=== PATIENT | female | born 1945 | race Two or more races ===

== ENCOUNTER 2022-02-05 09:39 | Outpatient (CLI) | payer MEDICARE, MEDICAID ==
[2022-02-05 10:51] LABS: ALBUMIN 4.2 g/dL (3.4-5.0); BILIRUBIN,TOTAL 0.4 mg/dL (0.2-1.0); CALCIUM, SERUM 9.2 mg/dL (8.5-10.1); CREATININE 0.7 mg/dL (0.6-1.3); POTASSIUM 3.9 mmol/L (3.5-5.1); TOTAL PROTEIN, SERUM 7.7 g/dL (6.4-8.2)
== END 2022-02-05 23:59 | disposition home or self-care (01) ==
LOC: MSC 09:39
PROVIDERS: ATTEND Internal Medicine
DX: N28.89 Other specified disorders of kidney and ureter (principal); I10 Essential (primary) hypertension; E11.9 Type 2 diabetes mellitus without complications; Z79.84 Long term (current) use of oral hypoglycemic drugs; G89.29 Other chronic pain; M47.819 Spondylosis without myelopathy or radiculopathy, site unspecified; D36.7 Benign neoplasm of other specified sites; K76.0 Fatty (change of) liver, not elsewhere classified
CPT/HCPCS: 36415; 80053; G0463

== ENCOUNTER 2022-02-19 10:30 | Outpatient (CLI) | payer MEDICARE, OTHER | END 2022-02-19 23:59 | disposition home or self-care (01) | LOC: MSC 10:30 | PROVIDERS: ATTEND Internal Medicine | DX: N28.89 Other specified disorders of kidney and ureter (principal); K76.0 Fatty (change of) liver, not elsewhere classified; I10 Essential (primary) hypertension; E11.9 Type 2 diabetes mellitus without complications; Z79.84 Long term (current) use of oral hypoglycemic drugs; G89.29 Other chronic pain; M54.9 Dorsalgia, unspecified; Z86.018 Personal history of other benign neoplasm ==